=== PATIENT | female | born 1935 | race Caucasian/White ===

== ENCOUNTER 2016-08-04 16:27 | Inpatient (IN) | payer MEDICARE, BC ==
[2016-08-04] MEDS ORDERED: ALBUTEROL1.25 MG/3 INH (19:03)
[2016-08-04] MEDS ORDERED: TOPROL XL25 M1 PO (19:03)
[2016-08-04] MEDS ORDERED: TRIAMCINOLONE A15 G2 TP (19:03)
[2016-08-04] MEDS ORDERED: ADVAIR 25028 BLISTE1 PO (19:04)
[2016-08-04] MEDS ORDERED: ZOLOFT25 M1 PO (19:04)
[2016-08-04] MEDS ORDERED: CARDIZEM CD240 M1 PO (19:04)
[2016-08-04] MEDS ORDERED: ELIQUIS5 M1 PO (19:05)
[2016-08-04] MEDS ORDERED: LASIX20 M1 PO (19:05)
[2016-08-04 22:03] LABS: HGB-HEMOGLOBIN 6.6 gm/dl (12.0-15.5); MCH (MEAN CORPUSCULAR HGB) 27.7 pg (28.0-32.0); MCV (MEAN CELL VOLUME) 90.3 fl (82.0-96.0); MEAN PLATELET VOLUME 11.8 cmc (9.4-12.4); NEUTROPHIL-AUTOMATED 6.4 tho/cmm (1.6-8.0); PLATELET COUNT 226 tho/cmm (150-450); RED BLOOD COUNT 2.38 mil/cmm (4.00-5.20); RED CELL DISTRIBUTION WIDTH 15.2 % (12.4-16.4); WHITE BLOOD COUNT 10.1 tho/cmm (4.0-10.0)
[2016-08-04 22:05] LABS: INR 1.5 INR (0.9-1.1); PROTHROMBIN TIME 17.4 SECONDS (9.0-13.6)
[2016-08-04 22:15] LABS: FERRITIN 15 ng/ml (8-250)
[2016-08-04 22:18] LABS: IRON 35 ug/dl (37-170); IRON BINDING CAPACITY 331 ug/dl (250-450)
[2016-08-04 22:32] LABS: PROCALCITONIN <0.05 ng/ml (0.05-0.09)
[2016-08-04 22:35] LABS: C-REACTIVE PROTEIN <0.3 mg/dl (0-0.9)
[2016-08-04 22:54] LABS: BASO % 1.7 % (0-2); BASO ABSOLUTE COUNT 0.2 tho/cmm (0.0-0.2); EOS % 2.8 % (0-7); EOSINOPHIL ABSOLUTE COUNT 0.3 tho/cmm (0.0-0.7); HCT-HEMATOCRIT 21.5 % (34.0-49.0); IMMATURE GRANULOCYTES ABSOLUTE 0.93 tho/cmm (0-0.03); IMMATURE GRANULOCYTES PERCENT 9.2 % (0-0.3); LYMPH % 19.5 % (20-45); MCHC MEAN CORPUSCULAR HGB CONC 30.7 % (32.0-36.0); MONO % 4.2 % (0-12); MONOCYTE ABSOLUTE COUNT 0.4 tho/cmm (0.0-1.2); NEUTROPHIL ABSOLUTE COUNT 6.4 tho/cmm (1.6-8.0); NEUTROPHILS % 62.6 % (40-80)
[2016-08-04 23:29] LABS: ALB/GLOB RATIO 0.7 (0.8-2.0); ALBUMIN 2.8 g/dl (3.5-5.0); ALKALINE PHOSPHATASE 34 U/L (33-138); ALT/SGPT 16 U/L (12-78); ANION GAP 11 mmol/L (0-20); AST/SGOT 15 U/L (10-40); BILIRUBIN,TOTAL 0.3 mg/dl (0-1.5); BLOOD UREA NITROGEN 27 mg/dl (6-24); CALCIUM 7.9 mg/dl (8.5-10.5); CARBON DIOXIDE-VENOUS 23 mmol/L (22-32); CHLORIDE 112 mmol/l (96-110); CREATININE 0.94 mg/dl (0.50-1.10); GLUCOSE 114 mg/dL (70-110); SODIUM 142 mmol/L (135-145); eGFR VALUE FOR BLACK 66 mL/Min
[2016-08-05 04:54] LABS: BASO % 1.8 % (0-2); BASO ABSOLUTE COUNT 0.1 tho/cmm (0.0-0.2); EOS % 2.8 % (0-7); EOSINOPHIL ABSOLUTE COUNT 0.2 tho/cmm (0.0-0.7); HCT-HEMATOCRIT 23.2 % (34.0-49.0); HGB-HEMOGLOBIN 7.2 gm/dl (12.0-15.5); IMMATURE GRANULOCYTES ABSOLUTE 0.82 tho/cmm (0-0.03); IMMATURE GRANULOCYTES PERCENT 11.6 % (0-0.3); LYMPH % 20.2 % (20-45); LYMPH ABSOLUTE COUNT 1.4 tho/cmm (0.8-4.5); MCH (MEAN CORPUSCULAR HGB) 28.3 pg (28.0-32.0); MCV (MEAN CELL VOLUME) 91.3 fl (82.0-96.0); MEAN PLATELET VOLUME 11.7 cmc (9.4-12.4); MONO % 5.7 % (0-12); MONOCYTE ABSOLUTE COUNT 0.4 tho/cmm (0.0-1.2); NEUTROPHIL ABSOLUTE COUNT 4.1 tho/cmm (1.6-8.0); NEUTROPHIL-AUTOMATED 4.1 tho/cmm (1.6-8.0); NEUTROPHILS % 57.9 % (40-80); PLATELET COUNT 182 tho/cmm (150-450); RED BLOOD COUNT 2.54 mil/cmm (4.00-5.20); RED CELL DISTRIBUTION WIDTH 15.1 % (12.4-16.4); WHITE BLOOD COUNT 7.1 tho/cmm (4.0-10.0)
[2016-08-05 05:15] LABS: ANION GAP 12 mmol/L (0-20); BLOOD UREA NITROGEN 24 mg/dl (6-24); CALCIUM 7.3 mg/dl (8.5-10.5); CARBON DIOXIDE-VENOUS 22 mmol/L (22-32); CHLORIDE 113 mmol/l (96-110); GLUCOSE 102 mg/dL (70-110); POTASSIUM 3.9 mmol/L (3.7-5.1); SODIUM 143 mmol/L (135-145); eGFR VALUE FOR BLACK 70 mL/Min
[2016-08-05 13:38] LABS: HGB-HEMOGLOBIN 7.3 gm/dl (12.0-15.5); MCV (MEAN CELL VOLUME) 91.8 fl (82.0-96.0); RED CELL DISTRIBUTION WIDTH 15.2 % (12.4-16.4)
[2016-08-05 13:53] LABS: HCT-HEMATOCRIT 23.4 % (34.0-49.0)
[2016-08-05 19:17] LABS: HCT-HEMATOCRIT 24.2 % (34.0-49.0); HGB-HEMOGLOBIN 7.5 gm/dl (12.0-15.5); MCV (MEAN CELL VOLUME) 91.7 fl (82.0-96.0); RED CELL DISTRIBUTION WIDTH 15.3 % (12.4-16.4)
[2016-08-06 01:22] LABS: HGB-HEMOGLOBIN 6.8 gm/dl (12.0-15.5); MCV (MEAN CELL VOLUME) 92.9 fl (82.0-96.0); RED CELL DISTRIBUTION WIDTH 15.6 % (12.4-16.4)
[2016-08-06 01:24] LABS: HCT-HEMATOCRIT 22.1 % (34.0-49.0)
[2016-08-06 13:52] LABS: ABG CO2 ARTERIAL 22 mmol/L (21-27); ARTERIAL BLD GAS O2 SATURATION 94 % (95-98); ARTERIAL BLOOD GAS PCO2 38 mmHg (32-45); ARTERIAL PO2 67 mmHg (70-100); BICARBONATE 21 mmol/L (21-28); BLOOD GAS BASE EXCESS -3 mM/L (-/+3); PH 7.36 Units (7.35-7.45)
[2016-08-06 14:09] LABS: HCT-HEMATOCRIT 27.1 % (34.0-49.0); HGB-HEMOGLOBIN 8.5 gm/dl (12.0-15.5); MCH (MEAN CORPUSCULAR HGB) 28.7 pg (28.0-32.0); MCHC MEAN CORPUSCULAR HGB CONC 31.4 % (32.0-36.0); MCV (MEAN CELL VOLUME) 91.6 fl (82.0-96.0); MEAN PLATELET VOLUME 11.3 cmc (9.4-12.4); PLATELET COUNT 219 tho/cmm (150-450); RED BLOOD COUNT 2.96 mil/cmm (4.00-5.20); RED CELL DISTRIBUTION WIDTH 15.5 % (12.4-16.4)
[2016-08-06 14:16] LABS: WHITE BLOOD COUNT 18.2 tho/cmm (4.0-10.0)
[2016-08-06 14:20] LABS: ANION GAP 13 mmol/L (0-20); BLOOD UREA NITROGEN 16 mg/dl (6-24); CALCIUM 7.5 mg/dl (8.5-10.5); CARBON DIOXIDE-VENOUS 24 mmol/L (22-32); CHLORIDE 117 mmol/l (96-110); CREATININE 1.05 mg/dl (0.50-1.10); GLUCOSE 146 mg/dL (70-110); POTASSIUM 3.4 mmol/L (3.7-5.1); eGFR VALUE FOR BLACK 58 mL/Min
[2016-08-06 14:27] LABS: SODIUM 151 mmol/L (135-145)
[2016-08-06 15:46] LABS: BAND % 7 % (0-20); BAND ABSOLUTE COUNT 1.3 tho/cmm (0-2.0); EOSINOPHIL % 1 % (0-7)
[2016-08-06 19:16] LABS: HCT-HEMATOCRIT 27.2 % (34.0-49.0); HGB-HEMOGLOBIN 8.5 gm/dl (12.0-15.5); MCV (MEAN CELL VOLUME) 91.3 fl (82.0-96.0); RED CELL DISTRIBUTION WIDTH 15.5 % (12.4-16.4)
[2016-08-07 05:37] LABS: HCT-HEMATOCRIT 26.1 % (34.0-49.0); HGB-HEMOGLOBIN 8.1 gm/dl (12.0-15.5); MCH (MEAN CORPUSCULAR HGB) 28.5 pg (28.0-32.0); MCV (MEAN CELL VOLUME) 91.9 fl (82.0-96.0); MEAN PLATELET VOLUME 11.8 cmc (9.4-12.4); PLATELET COUNT 226 tho/cmm (150-450); RED BLOOD COUNT 2.84 mil/cmm (4.00-5.20); RED CELL DISTRIBUTION WIDTH 15.6 % (12.4-16.4)
[2016-08-07 05:48] LABS: ANION GAP 15 mmol/L (0-20); BLOOD UREA NITROGEN 20 mg/dl (6-24); CALCIUM 7.4 mg/dl (8.5-10.5); CARBON DIOXIDE-VENOUS 23 mmol/L (22-32); CHLORIDE 109 mmol/l (96-110); GLUCOSE 204 mg/dL (70-110); POTASSIUM 3.5 mmol/L (3.7-5.1); SODIUM 143 mmol/L (135-145); eGFR VALUE FOR BLACK 40 mL/Min
[2016-08-07 05:51] LABS: CREATININE 1.42 mg/dl (0.50-1.10)
[2016-08-07 05:59] LABS: WHITE BLOOD COUNT 47.2 tho/cmm (4.0-10.0)
[2016-08-07 06:53] LABS: BAND % 21 % (0-20); BAND ABSOLUTE COUNT 9.9 tho/cmm (0-2.0)
[2016-08-07 06:54] LABS: WBC MORPHOLOGY TOXIC GRANULATION
[2016-08-07 09:38] LABS: C-REACTIVE PROTEIN 14.4 mg/dl (0-0.9)
[2016-08-07 10:23] LABS: PROCALCITONIN 6.56 ng/ml (0.05-0.09)
[2016-08-07 13:14] LABS: HCT-HEMATOCRIT 25.1 % (34.0-49.0); HGB-HEMOGLOBIN 7.9 gm/dl (12.0-15.5); MCV (MEAN CELL VOLUME) 90.6 fl (82.0-96.0); RED CELL DISTRIBUTION WIDTH 15.7 % (12.4-16.4)
[2016-08-07 17:25] LABS: HGB-HEMOGLOBIN 7.3 gm/dl (12.0-15.5); MCV (MEAN CELL VOLUME) 89.8 fl (82.0-96.0); RED CELL DISTRIBUTION WIDTH 15.7 % (12.4-16.4)
[2016-08-07 17:26] LABS: HCT-HEMATOCRIT 22.9 % (34.0-49.0)
[2016-08-07 23:34] LABS: HGB-HEMOGLOBIN 7.6 gm/dl (12.0-15.5); MCV (MEAN CELL VOLUME) 89.9 fl (82.0-96.0); RED CELL DISTRIBUTION WIDTH 15.7 % (12.4-16.4)
[2016-08-08 05:04] LABS: HCT-HEMATOCRIT 24.3 % (34.0-49.0); HGB-HEMOGLOBIN 7.6 gm/dl (12.0-15.5); MCH (MEAN CORPUSCULAR HGB) 28.1 pg (28.0-32.0); MCHC MEAN CORPUSCULAR HGB CONC 31.3 % (32.0-36.0); MEAN PLATELET VOLUME 11.5 cmc (9.4-12.4); PLATELET COUNT 209 tho/cmm (150-450); RED CELL DISTRIBUTION WIDTH 15.5 % (12.4-16.4); WHITE BLOOD COUNT 27.1 tho/cmm (4.0-10.0)
[2016-08-08 05:21] LABS: CALCIUM 7.4 mg/dl (8.5-10.5); CARBON DIOXIDE-VENOUS 24 mmol/L (22-32); CHLORIDE 106 mmol/l (96-110); CREATININE 1.32 mg/dl (0.50-1.10); GLUCOSE 175 mg/dL (70-110); SODIUM 140 mmol/L (135-145); eGFR VALUE FOR BLACK 44 mL/Min
[2016-08-08 05:29] LABS: ANION GAP 13 mmol/L (0-20); BLOOD UREA NITROGEN 35 mg/dl (6-24)
[2016-08-08 06:18] LABS: BAND % 16 % (0-20); BAND ABSOLUTE COUNT 4.3 tho/cmm (0-2.0); EOSINOPHIL % 1 % (0-7)
[2016-08-08 06:19] LABS: WBC MORPHOLOGY TOXIC GRANULATION
[2016-08-09 04:21] LABS: HCT-HEMATOCRIT 24.8 % (34.0-49.0); HGB-HEMOGLOBIN 7.8 gm/dl (12.0-15.5); MCH (MEAN CORPUSCULAR HGB) 28.4 pg (28.0-32.0); MCHC MEAN CORPUSCULAR HGB CONC 31.5 % (32.0-36.0); MCV (MEAN CELL VOLUME) 90.2 fl (82.0-96.0); MEAN PLATELET VOLUME 11.6 cmc (9.4-12.4); PLATELET COUNT 229 tho/cmm (150-450); RED BLOOD COUNT 2.75 mil/cmm (4.00-5.20); RED CELL DISTRIBUTION WIDTH 15.5 % (12.4-16.4); WHITE BLOOD COUNT 19.9 tho/cmm (4.0-10.0)
[2016-08-09 04:33] LABS: ANION GAP 12 mmol/L (0-20); BLOOD UREA NITROGEN 27 mg/dl (6-24); CALCIUM 7.7 mg/dl (8.5-10.5); CARBON DIOXIDE-VENOUS 25 mmol/L (22-32); CHLORIDE 108 mmol/l (96-110); CREATININE 1.11 mg/dl (0.50-1.10); GLUCOSE 181 mg/dL (70-110); POTASSIUM 3.7 mmol/L (3.7-5.1); SODIUM 141 mmol/L (135-145); eGFR VALUE FOR BLACK 54 mL/Min
[2016-08-09 08:14] LABS: BAND % 13 % (0-20); BAND ABSOLUTE COUNT 2.6 tho/cmm (0-2.0)
[2016-08-10 05:01] LABS: HCT-HEMATOCRIT 26.8 % (34.0-49.0); HGB-HEMOGLOBIN 8.3 gm/dl (12.0-15.5); MCH (MEAN CORPUSCULAR HGB) 28.1 pg (28.0-32.0); MCV (MEAN CELL VOLUME) 90.8 fl (82.0-96.0); MEAN PLATELET VOLUME 11.9 cmc (9.4-12.4); PLATELET COUNT 286 tho/cmm (150-450); RED BLOOD COUNT 2.95 mil/cmm (4.00-5.20); RED CELL DISTRIBUTION WIDTH 15.3 % (12.4-16.4)
[2016-08-10 05:22] LABS: ANION GAP 12 mmol/L (0-20); BLOOD UREA NITROGEN 33 mg/dl (6-24); CARBON DIOXIDE-VENOUS 28 mmol/L (22-32); CHLORIDE 105 mmol/l (96-110); CREATININE 1.28 mg/dl (0.50-1.10); GLUCOSE 184 mg/dL (70-110); POTASSIUM 3.8 mmol/L (3.7-5.1); SODIUM 141 mmol/L (135-145); eGFR VALUE FOR BLACK 45 mL/Min
[2016-08-10 07:45] LABS: BAND % 11 % (0-20); BAND ABSOLUTE COUNT 1.9 tho/cmm (0-2.0)
[2016-08-11 05:20] LABS: HCT-HEMATOCRIT 28.3 % (34.0-49.0); HGB-HEMOGLOBIN 8.6 gm/dl (12.0-15.5); MCH (MEAN CORPUSCULAR HGB) 27.6 pg (28.0-32.0); MCHC MEAN CORPUSCULAR HGB CONC 30.4 % (32.0-36.0); MCV (MEAN CELL VOLUME) 90.7 fl (82.0-96.0); PLATELET COUNT 324 tho/cmm (150-450); RED BLOOD COUNT 3.12 mil/cmm (4.00-5.20); RED CELL DISTRIBUTION WIDTH 15.2 % (12.4-16.4); WHITE BLOOD COUNT 18.9 tho/cmm (4.0-10.0)
[2016-08-11 12:56] LABS: BAND % 1 % (0-20); BAND ABSOLUTE COUNT 0.2 tho/cmm (0-2.0); EOSINOPHIL % 2 % (0-7); WBC MORPHOLOGY VACUOLES
[2016-08-12 03:57] LABS: HCT-HEMATOCRIT 27.4 % (34.0-49.0); HGB-HEMOGLOBIN 8.4 gm/dl (12.0-15.5); MCH (MEAN CORPUSCULAR HGB) 27.5 pg (28.0-32.0); MCHC MEAN CORPUSCULAR HGB CONC 30.7 % (32.0-36.0); MCV (MEAN CELL VOLUME) 89.8 fl (82.0-96.0); MEAN PLATELET VOLUME 10.8 cmc (9.4-12.4); NEUTROPHIL-AUTOMATED 9.5 tho/cmm (1.6-8.0); PLATELET COUNT 296 tho/cmm (150-450); RED BLOOD COUNT 3.05 mil/cmm (4.00-5.20); RED CELL DISTRIBUTION WIDTH 15.3 % (12.4-16.4); WHITE BLOOD COUNT 15.1 tho/cmm (4.0-10.0)
[2016-08-12 04:21] LABS: ALBUMIN 2.7 g/dl (3.5-5.0); ANION GAP 13 mmol/L (0-20); BLOOD UREA NITROGEN 35 mg/dl (6-24); C-REACTIVE PROTEIN 1.4 mg/dl (0-0.9); CALCIUM 8.6 mg/dl (8.5-10.5); CARBON DIOXIDE-VENOUS 29 mmol/L (22-32); CHLORIDE 103 mmol/l (96-110); CREATININE 1.24 mg/dl (0.50-1.10); GLUCOSE 126 mg/dL (70-110); PHOSPHOROUS 5.4 mg/dl (2.5-4.9); POTASSIUM 3.6 mmol/L (3.7-5.1); SODIUM 141 mmol/L (135-145); eGFR VALUE FOR BLACK 47 mL/Min
[2016-08-12 05:41] LABS: PROCALCITONIN 0.21 ng/ml (0.05-0.09)
[2016-08-12 07:26] LABS: BAND % 4 % (0-20); BAND ABSOLUTE COUNT 0.6 tho/cmm (0-2.0); EOSINOPHIL % 1 % (0-7)
[2016-08-12 07:28] LABS: WBC MORPHOLOGY VACUOLES
[2016-08-13 04:46] LABS: HCT-HEMATOCRIT 28.3 % (34.0-49.0); HGB-HEMOGLOBIN 8.8 gm/dl (12.0-15.5); MCH (MEAN CORPUSCULAR HGB) 27.8 pg (28.0-32.0); MCHC MEAN CORPUSCULAR HGB CONC 31.1 % (32.0-36.0); MCV (MEAN CELL VOLUME) 89.6 fl (82.0-96.0); PLATELET COUNT 313 tho/cmm (150-450); RED BLOOD COUNT 3.16 mil/cmm (4.00-5.20); RED CELL DISTRIBUTION WIDTH 15.3 % (12.4-16.4); WHITE BLOOD COUNT 12.8 tho/cmm (4.0-10.0)
[2016-08-13 04:58] LABS: ANION GAP 12 mmol/L (0-20); BLOOD UREA NITROGEN 44 mg/dl (6-24); CALCIUM 8.8 mg/dl (8.5-10.5); CARBON DIOXIDE-VENOUS 33 mmol/L (22-32); CHLORIDE 99 mmol/l (96-110); CREATININE 1.42 mg/dl (0.50-1.10); GLUCOSE 102 mg/dL (70-110); POTASSIUM 3.6 mmol/L (3.7-5.1); SODIUM 140 mmol/L (135-145); eGFR VALUE FOR BLACK 40 mL/Min
[2016-08-13 08:45] LABS: BAND % 2 % (0-20); BAND ABSOLUTE COUNT 0.3 tho/cmm (0-2.0)
[2016-08-13] MEDS ORDERED: AMIODARONE HCL200 M1 PO (11:19)
[2016-08-13] MEDS ORDERED: PROTONIX40 M2 PO (11:21)
== END 2016-08-13 16:35 | disposition home health service (06) | DRG 299 ==
LOC: PCUB 16:27 → CCU 08-06 16:45 → PCUA 08-10 13:29
PROVIDERS: Family Medicine; Internal Medicine; Internal Medicine Critical Care Medicine; Nurse Practitioner Family; Physician Assistant; Registered Nurse; Specialist; ADMIT Internal Medicine
PROC: 0D598ZZ Destruction of Duodenum, Via Natural or Artificial Opening Endoscopic (ICD-10-PCS; principal; 2016-08-05)
PROC: 30233N1 Transfusion of Nonautologous Red Blood Cells into Peripheral Vein, Percutaneous Approach (ICD-10-PCS; 2016-08-05)
PROC: 5A09457 Assistance with Respiratory Ventilation, 24-96 Consecutive Hours, Continuous Positive Airway Pressure (ICD-10-PCS; 2016-08-05)
PROC: 0D5H8ZZ Destruction of Cecum, Via Natural or Artificial Opening Endoscopic (ICD-10-PCS; 2016-08-06)
PROC: 0W3P8ZZ Control Bleeding in Gastrointestinal Tract, Via Natural or Artificial Opening Endoscopic (ICD-10-PCS; 2016-08-06)
PROC: 02HV33Z Insertion of Infusion Device into Superior Vena Cava, Percutaneous Approach (ICD-10-PCS; 2016-08-07)
DX: Q27.33 Arteriovenous malformation of digestive system vessel (principal); J95.821 Acute postprocedural respiratory failure; J69.0 Pneumonitis due to inhalation of food and vomit; I50.31 Acute diastolic (congestive) heart failure; F32.0 Major depressive disorder, single episode, mild; K92.1 Melena; D62 Acute posthemorrhagic anemia; N17.9 Acute kidney failure, unspecified; K64.8 Other hemorrhoids; D51.0 Vitamin B12 deficiency anemia due to intrinsic factor deficiency; D12.2 Benign neoplasm of ascending colon; D64.9 Anemia, unspecified; I48.91 Unspecified atrial fibrillation; J44.9 Chronic obstructive pulmonary disease, unspecified; I05.0 Rheumatic mitral stenosis; F32.9 Major depressive disorder, single episode, unspecified; K57.30 Diverticulosis of large intestine without perforation or abscess without bleeding; D12.5 Benign neoplasm of sigmoid colon; R91.8 Other nonspecific abnormal finding of lung field; M81.0 Age-related osteoporosis without current pathological fracture; Y84.8 Other medical procedures as the cause of abnormal reaction of the patient, or of later complication, without mention of misadventure at the time of the procedure; Z79.01 Long term (current) use of anticoagulants; Z87.891 Personal history of nicotine dependence; Z90.49 Acquired absence of other specified parts of digestive tract; Z98.51 Tubal ligation status
CPT/HCPCS: C1751; C1758; C9113; G8978-GP-CI; G8979-GP-CI; G8980-GP-CI; J0282; J1940; J2405; J2543; J2920; J2930; J3370; J3480; J7030; J7050; J7512; P9016

== ENCOUNTER 2016-08-18 18:29 | Observation (INO) | payer MEDICARE, BC ==
[2016-08-18 17:53] LABS: URINE BILIRUBIN NEGATIVE (NEG); URINE BLOOD NEGATIVE (NEG); URINE GLUCOSE (UA) NEGATIVE (NEG); URINE KETONE NEGATIVE (NEG); URINE LEUKOCYTE ESTERASE NEGATIVE (NEG); URINE NITRITE NEGATIVE (NEG); URINE PROTEIN NEGATIVE (NEG); URINE SPECIFIC GRAVITY 1.015 (1.003-1.030)
[2016-08-18 17:57] LABS: URINE COLOR YELLOW
[2016-08-18 17:58] LABS: URINE APPEARANCE SL CLOUDY
[2016-08-18 18:00] LABS: BASO % 0.4 % (0-2); EOS % 1.9 % (0-7); EOSINOPHIL ABSOLUTE COUNT 0.2 tho/cmm (0.0-0.7); HCT-HEMATOCRIT 26.3 % (34.0-49.0); IMMATURE GRANULOCYTES ABSOLUTE 0.29 tho/cmm (0-0.03); IMMATURE GRANULOCYTES PERCENT 3.7 % (0-0.3); LYMPH % 14.8 % (20-45); LYMPH ABSOLUTE COUNT 1.2 tho/cmm (0.8-4.5); MCH (MEAN CORPUSCULAR HGB) 27.5 pg (28.0-32.0); MCHC MEAN CORPUSCULAR HGB CONC 30.4 % (32.0-36.0); MCV (MEAN CELL VOLUME) 90.4 fl (82.0-96.0); MONOCYTE ABSOLUTE COUNT 0.3 tho/cmm (0.0-1.2); NEUTROPHILS % 75.2 % (40-80); PLATELET COUNT 194 tho/cmm (150-450); RED BLOOD COUNT 2.91 mil/cmm (4.00-5.20); RED CELL DISTRIBUTION WIDTH 15.8 % (12.4-16.4); WHITE BLOOD COUNT 7.9 tho/cmm (4.0-10.0)
[2016-08-18 18:16] LABS: ALB/GLOB RATIO 0.7 (0.8-2.0); ALKALINE PHOSPHATASE 37 U/L (33-138); ALT/SGPT 26 U/L (12-78); ANION GAP 12 mmol/L (0-20); AST/SGOT 15 U/L (10-40); BILIRUBIN,TOTAL 0.3 mg/dl (0-1.5); BLOOD UREA NITROGEN 29 mg/dl (6-24); CALCIUM 8.3 mg/dl (8.5-10.5); CARBON DIOXIDE-VENOUS 25 mmol/L (22-32); CHLORIDE 110 mmol/l (96-110); CREATININE 1.41 mg/dl (0.50-1.10); GLUCOSE 110 mg/dL (70-110); LIPASE 259 U/L (73-393); POTASSIUM 3.7 mmol/L (3.7-5.1); SODIUM 143 mmol/L (135-145); eGFR VALUE FOR BLACK 40 mL/Min
[~2016-08-18 18:29] MED LIST: ADVAIR 25028 BLISTE1 PO; ALBUTEROL1.25 MG/3 INH; AMIODARONE HCL200 M1 PO; CARDIZEM CD240 M1 PO; ELIQUIS5 M1 PO; LASIX20 M1 PO; PROTONIX40 M2 PO; TOPROL XL25 M1 PO; TRIAMCINOLONE A15 G2 TP; ZOLOFT25 M1 PO
[2016-08-19 04:26] LABS: BASO % 0.4 % (0-2); EOS % 3.1 % (0-7); EOSINOPHIL ABSOLUTE COUNT 0.1 tho/cmm (0.0-0.7); HGB-HEMOGLOBIN 7.2 gm/dl (12.0-15.5); IMMATURE GRANULOCYTES PERCENT 4.4 % (0-0.3); LYMPH % 26.2 % (20-45); LYMPH ABSOLUTE COUNT 1.2 tho/cmm (0.8-4.5); MCH (MEAN CORPUSCULAR HGB) 27.3 pg (28.0-32.0); MCHC MEAN CORPUSCULAR HGB CONC 30.1 % (32.0-36.0); MCV (MEAN CELL VOLUME) 90.5 fl (82.0-96.0); MEAN PLATELET VOLUME 11.1 cmc (9.4-12.4); MONO % 5.9 % (0-12); MONOCYTE ABSOLUTE COUNT 0.3 tho/cmm (0.0-1.2); NEUTROPHIL ABSOLUTE COUNT 2.7 tho/cmm (1.6-8.0); NEUTROPHIL-AUTOMATED 2.7 tho/cmm (1.6-8.0); PLATELET COUNT 175 tho/cmm (150-450); RED BLOOD COUNT 2.64 mil/cmm (4.00-5.20); RED CELL DISTRIBUTION WIDTH 15.9 % (12.4-16.4); WHITE BLOOD COUNT 4.5 tho/cmm (4.0-10.0)
[2016-08-19 04:30] LABS: ANION GAP 10 mmol/L (0-20); BLOOD UREA NITROGEN 22 mg/dl (6-24); CALCIUM 7.5 mg/dl (8.5-10.5); CARBON DIOXIDE-VENOUS 25 mmol/L (22-32); CHLORIDE 113 mmol/l (96-110); CREATININE 1.11 mg/dl (0.50-1.10); GLUCOSE 100 mg/dL (70-110); POTASSIUM 3.7 mmol/L (3.7-5.1); SODIUM 144 mmol/L (135-145); eGFR VALUE FOR BLACK 54 mL/Min
[2016-08-19 04:40] LABS: HCT-HEMATOCRIT 23.9 % (34.0-49.0)
[2016-08-19] MEDS ORDERED: MAPAP500 M2 PO (10:40)
[2016-08-19] MEDS ORDERED: SPIRIVA18 MC1 INH (10:40)
[2016-08-19] MEDS ORDERED: CYANOCOBAL1000 MCG/3 IM (10:40)
[2016-08-19] MEDS ORDERED: LORATADINE10 M2 PO (10:41)
--- NOTE | 2016-08-19 20:35 | NUR ---
VIRTUAL CARE NOTE PT. IN BED AND NOTED HAD HEATING PAD ON. SHE EXPLAINS TO THIS NURSE SHE HAS A SPOT IN HER BACK THAT CAUSES HER PAIN AND THE HEATING PAD HELPS. STATES IS HAVING SOME PAIN, BUT HAS TOLD HER FLOOR NURSE ABOUT AND THE RN WILL BRING HER MEDS SHORTLY. EDUCATION PROVIDED TO THE PT. REGARDING THE DOCTOR IS WANTING TO OBTAIN A STOOL SAMPLE TO MAKE SURE SHE DOESN'T HAVE A C-DIFF INFECTION. ALSO EDUCATION ON PRECAUTIONS OF STAFF AND GUESTS PROVIDED. DENIES FURTHER QUESTIONS AT THIS TIME. EDUCATION PROVIDED THAT IF PT. FELT DIZZY OR SOB WHILE SITTING UP TO CALL FOR ASSISTANCE FOR AMBULATION. DENIES FURTHER NEEDS AND STATES VERBAL AGREEMENT.
[2016-08-20 05:51] LABS: BASO % 0.7 % (0-2); EOS % 2.8 % (0-7); EOSINOPHIL ABSOLUTE COUNT 0.1 tho/cmm (0.0-0.7); HGB-HEMOGLOBIN 8.6 gm/dl (12.0-15.5); IMMATURE GRANULOCYTES ABSOLUTE 0.13 tho/cmm (0-0.03); LYMPH % 25.3 % (20-45); LYMPH ABSOLUTE COUNT 1.1 tho/cmm (0.8-4.5); MCH (MEAN CORPUSCULAR HGB) 27.1 pg (28.0-32.0); MCHC MEAN CORPUSCULAR HGB CONC 30.7 % (32.0-36.0); MCV (MEAN CELL VOLUME) 88.3 fl (82.0-96.0); MEAN PLATELET VOLUME 10.4 cmc (9.4-12.4); MONO % 6.5 % (0-12); MONOCYTE ABSOLUTE COUNT 0.3 tho/cmm (0.0-1.2); NEUTROPHIL ABSOLUTE COUNT 2.7 tho/cmm (1.6-8.0); NEUTROPHIL-AUTOMATED 2.7 tho/cmm (1.6-8.0); NEUTROPHILS % 61.7 % (40-80); PLATELET COUNT 174 tho/cmm (150-450); RED BLOOD COUNT 3.17 mil/cmm (4.00-5.20); RED CELL DISTRIBUTION WIDTH 17.3 % (12.4-16.4); WHITE BLOOD COUNT 4.3 tho/cmm (4.0-10.0)
[2016-08-20 06:18] LABS: ANION GAP 10 mmol/L (0-20); BLOOD UREA NITROGEN 11 mg/dl (6-24); CALCIUM 7.4 mg/dl (8.5-10.5); CARBON DIOXIDE-VENOUS 23 mmol/L (22-32); CHLORIDE 115 mmol/l (96-110); CREATININE 0.89 mg/dl (0.50-1.10); GLUCOSE 91 mg/dL (70-110); MAGNESIUM 2.2 mg/dl (1.3-2.6); POTASSIUM 3.9 mmol/L (3.7-5.1); SODIUM 144 mmol/L (135-145); eGFR VALUE FOR BLACK 70 mL/Min
[2016-08-20] MEDS ORDERED: DICYCLOMINE HCL20 M1 PO (12:11)
[2016-08-20] MEDS ORDERED: FEOSOL325 M1 PO (12:11)
[2016-08-20] MEDS ORDERED: MIRALAX17 G2 PO (12:12)
== END 2016-08-20 16:55 ==
LOC: EDMED 18:29 → EMR2 21:30 → 5WD 22:42
PROVIDERS: Emergency Medicine; Internal Medicine; ADMIT Hospitalist
DX: D50.0 Iron deficiency anemia secondary to blood loss (chronic) (principal); D51.0 Vitamin B12 deficiency anemia due to intrinsic factor deficiency; K92.1 Melena; J69.0 Pneumonitis due to inhalation of food and vomit; J45.909 Unspecified asthma, uncomplicated; F32.9 Major depressive disorder, single episode, unspecified; Z79.899 Other long term (current) drug therapy; Z79.52 Long term (current) use of systemic steroids; Z86.79 Personal history of other diseases of the circulatory system; Z90.49 Acquired absence of other specified parts of digestive tract; Z90.710 Acquired absence of both cervix and uterus; Z98.51 Tubal ligation status; Z88.2 Allergy status to sulfonamides
CPT/HCPCS: G0378; G8978-GP-CJ; G8979-GP-CI; G8980-GP-CJ; G8987-GO-CJ; G8988-GO-CI; G8989-GO-CJ; J2405; J3420; J7030; P9016

== ENCOUNTER 2016-08-22 06:36 | Inpatient (IN) | payer MEDICARE, BC ==
[~2016-08-22 06:36] MED LIST changes: +CYANOCOBAL1000 MCG/3 IM; +DICYCLOMINE HCL20 M1 PO; +FEOSOL325 M1 PO; +LORATADINE10 M2 PO; +MAPAP500 M2 PO; +MIRALAX17 G2 PO; +SPIRIVA18 MC1 INH
[2016-08-22 07:30] LABS: BASO % 0.9 % (0-2); BASO ABSOLUTE COUNT 0.1 tho/cmm (0.0-0.2); EOS % 1.5 % (0-7); EOSINOPHIL ABSOLUTE COUNT 0.1 tho/cmm (0.0-0.7); HCT-HEMATOCRIT 28.7 % (34.0-49.0); HGB-HEMOGLOBIN 8.8 gm/dl (12.0-15.5); IMMATURE GRANULOCYTES ABSOLUTE 0.08 tho/cmm (0-0.03); IMMATURE GRANULOCYTES PERCENT 1.5 % (0-0.3); LYMPH % 22.9 % (20-45); LYMPH ABSOLUTE COUNT 1.2 tho/cmm (0.8-4.5); MCH (MEAN CORPUSCULAR HGB) 27.3 pg (28.0-32.0); MCHC MEAN CORPUSCULAR HGB CONC 30.7 % (32.0-36.0); MCV (MEAN CELL VOLUME) 89.1 fl (82.0-96.0); MEAN PLATELET VOLUME 10.6 cmc (9.4-12.4); MONO % 5.3 % (0-12); MONOCYTE ABSOLUTE COUNT 0.3 tho/cmm (0.0-1.2); NEUTROPHIL ABSOLUTE COUNT 3.6 tho/cmm (1.6-8.0); NEUTROPHIL-AUTOMATED 3.6 tho/cmm (1.6-8.0); NEUTROPHILS % 67.9 % (40-80); PLATELET COUNT 214 tho/cmm (150-450); RED BLOOD COUNT 3.22 mil/cmm (4.00-5.20); RED CELL DISTRIBUTION WIDTH 17.1 % (12.4-16.4); WHITE BLOOD COUNT 5.3 tho/cmm (4.0-10.0)
[2016-08-22 07:32] LABS: PROTHROMBIN TIME 11.6 SECONDS (9.0-13.6)
[2016-08-22 07:36] LABS: URINE APPEARANCE CLEAR; URINE BILIRUBIN NEGATIVE (NEG); URINE BLOOD NEGATIVE (NEG); URINE COLOR YELLOW; URINE GLUCOSE (UA) NEGATIVE (NEG); URINE KETONE NEGATIVE (NEG); URINE LEUKOCYTE ESTERASE NEGATIVE (NEG); URINE NITRITE NEGATIVE (NEG); URINE PROTEIN NEGATIVE (NEG); URINE SPECIFIC GRAVITY 1.015 (1.003-1.030)
[2016-08-22 07:45] LABS: ALB/GLOB RATIO 0.8 (0.8-2.0); ALBUMIN 2.9 g/dl (3.5-5.0); ALKALINE PHOSPHATASE 37 U/L (33-138); ALT/SGPT 47 U/L (12-78); ANION GAP 13 mmol/L (0-20); AST/SGOT 29 U/L (10-40); BILIRUBIN,TOTAL 0.4 mg/dl (0-1.5); BLOOD UREA NITROGEN 14 mg/dl (6-24); CALCIUM 7.8 mg/dl (8.5-10.5); CARBON DIOXIDE-VENOUS 24 mmol/L (22-32); CHLORIDE 111 mmol/l (96-110); CREATININE 1.01 mg/dl (0.50-1.10); GLUCOSE 125 mg/dL (70-110); POTASSIUM 3.8 mmol/L (3.7-5.1); SODIUM 144 mmol/L (135-145); eGFR VALUE FOR BLACK 60 mL/Min
[2016-08-23 06:57] LABS: ANION GAP 10 mmol/L (0-20); BLOOD UREA NITROGEN 15 mg/dl (6-24); CARBON DIOXIDE-VENOUS 27 mmol/L (22-32); CHLORIDE 108 mmol/l (96-110); CREATININE 1.12 mg/dl (0.50-1.10); GLUCOSE 144 mg/dL (70-110); POTASSIUM 3.4 mmol/L (3.7-5.1); SODIUM 142 mmol/L (135-145); eGFR VALUE FOR BLACK 53 mL/Min
[2016-08-24 05:13] LABS: BASO % 2.3 % (0-2); BASO ABSOLUTE COUNT 0.1 tho/cmm (0.0-0.2); EOS % 2.8 % (0-7); EOSINOPHIL ABSOLUTE COUNT 0.1 tho/cmm (0.0-0.7); HCT-HEMATOCRIT 26.7 % (34.0-49.0); HGB-HEMOGLOBIN 8.1 gm/dl (12.0-15.5); IMMATURE GRANULOCYTES ABSOLUTE 0.04 tho/cmm (0-0.03); LYMPH % 31.7 % (20-45); LYMPH ABSOLUTE COUNT 1.2 tho/cmm (0.8-4.5); MCH (MEAN CORPUSCULAR HGB) 27.1 pg (28.0-32.0); MCHC MEAN CORPUSCULAR HGB CONC 30.3 % (32.0-36.0); MCV (MEAN CELL VOLUME) 89.3 fl (82.0-96.0); MEAN PLATELET VOLUME 10.3 cmc (9.4-12.4); MONO % 8.5 % (0-12); MONOCYTE ABSOLUTE COUNT 0.3 tho/cmm (0.0-1.2); NEUTROPHIL ABSOLUTE COUNT 2.1 tho/cmm (1.6-8.0); NEUTROPHIL-AUTOMATED 2.1 tho/cmm (1.6-8.0); NEUTROPHILS % 53.7 % (40-80); PLATELET COUNT 211 tho/cmm (150-450); RED BLOOD COUNT 2.99 mil/cmm (4.00-5.20); RED CELL DISTRIBUTION WIDTH 17.3 % (12.4-16.4); WHITE BLOOD COUNT 3.9 tho/cmm (4.0-10.0)
[2016-08-24 05:30] LABS: ANION GAP 11 mmol/L (0-20); BLOOD UREA NITROGEN 18 mg/dl (6-24); CALCIUM 8.1 mg/dl (8.5-10.5); CARBON DIOXIDE-VENOUS 28 mmol/L (22-32); CHLORIDE 106 mmol/l (96-110); CREATININE 1.13 mg/dl (0.50-1.10); GLUCOSE 132 mg/dL (70-110); POTASSIUM 3.4 mmol/L (3.7-5.1); SODIUM 142 mmol/L (135-145); eGFR VALUE FOR BLACK 53 mL/Min
[2016-08-24 05:50] LABS: TSH-THYROID STIMULATING HORM. 4.53 uIU/ml (0.40-3.80)
[2016-08-25 05:43] LABS: BASO % 1.2 % (0-2); BASO ABSOLUTE COUNT 0.1 tho/cmm (0.0-0.2); EOS % 3.7 % (0-7); EOSINOPHIL ABSOLUTE COUNT 0.2 tho/cmm (0.0-0.7); HCT-HEMATOCRIT 27.5 % (34.0-49.0); HGB-HEMOGLOBIN 8.4 gm/dl (12.0-15.5); IMMATURE GRANULOCYTES ABSOLUTE 0.07 tho/cmm (0-0.03); IMMATURE GRANULOCYTES PERCENT 1.4 % (0-0.3); LYMPH % 31.3 % (20-45); LYMPH ABSOLUTE COUNT 1.5 tho/cmm (0.8-4.5); MCHC MEAN CORPUSCULAR HGB CONC 30.5 % (32.0-36.0); MCV (MEAN CELL VOLUME) 88.4 fl (82.0-96.0); MEAN PLATELET VOLUME 10.8 cmc (9.4-12.4); MONO % 6.2 % (0-12); MONOCYTE ABSOLUTE COUNT 0.3 tho/cmm (0.0-1.2); NEUTROPHIL ABSOLUTE COUNT 2.7 tho/cmm (1.6-8.0); NEUTROPHIL-AUTOMATED 2.7 tho/cmm (1.6-8.0); NEUTROPHILS % 56.2 % (40-80); PLATELET COUNT 222 tho/cmm (150-450); RED BLOOD COUNT 3.11 mil/cmm (4.00-5.20); RED CELL DISTRIBUTION WIDTH 17.3 % (12.4-16.4); WHITE BLOOD COUNT 4.8 tho/cmm (4.0-10.0)
[2016-08-25 05:55] LABS: ANION GAP 11 mmol/L (0-20); BLOOD UREA NITROGEN 22 mg/dl (6-24); CALCIUM 8.4 mg/dl (8.5-10.5); CARBON DIOXIDE-VENOUS 29 mmol/L (22-32); CHLORIDE 104 mmol/l (96-110); CREATININE 1.05 mg/dl (0.50-1.10); GLUCOSE 115 mg/dL (70-110); POTASSIUM 3.6 mmol/L (3.7-5.1); SODIUM 140 mmol/L (135-145); eGFR VALUE FOR BLACK 58 mL/Min
[2016-08-26 05:30] LABS: ANION GAP 14 mmol/L (0-20); BLOOD UREA NITROGEN 25 mg/dl (6-24); CALCIUM 8.2 mg/dl (8.5-10.5); CARBON DIOXIDE-VENOUS 29 mmol/L (22-32); CHLORIDE 103 mmol/l (96-110); CREATININE 1.12 mg/dl (0.50-1.10); GLUCOSE 113 mg/dL (70-110); POTASSIUM 3.6 mmol/L (3.7-5.1); SODIUM 142 mmol/L (135-145); eGFR VALUE FOR BLACK 53 mL/Min
[2016-08-26] MEDS ORDERED: POTASSIUM CHLO10 ME1 PO (10:47)
[2016-08-27 06:02] LABS: ANION GAP 10 mmol/L (0-20); BLOOD UREA NITROGEN 25 mg/dl (6-24); CALCIUM 8.3 mg/dl (8.5-10.5); CARBON DIOXIDE-VENOUS 30 mmol/L (22-32); CHLORIDE 102 mmol/l (96-110); CREATININE 1.18 mg/dl (0.50-1.10); GLUCOSE 133 mg/dL (70-110); POTASSIUM 3.2 mmol/L (3.7-5.1); SODIUM 139 mmol/L (135-145); eGFR VALUE FOR BLACK 50 mL/Min
[2016-08-27] MEDS ORDERED: LASIX40 M1 PO (10:02)
[2016-08-27] MEDS ORDERED: ZOFRAN4 M2 PO (10:03)
[2016-08-27] MEDS ORDERED: K-TAB ER20 ME1 PO (10:03)
== END 2016-08-27 15:29 | disposition home health service (06) | DRG 291 ==
LOC: EDMED 06:36 → EMR2 13:12 → 5WE 15:33
PROVIDERS: Emergency Medicine; Family Medicine; ADMIT Internal Medicine
PROC: 5A09357 Assistance with Respiratory Ventilation, Less than 24 Consecutive Hours, Continuous Positive Airway Pressure (ICD-10-PCS; principal; 2016-08-22)
DX: I50.33 Acute on chronic diastolic (congestive) heart failure (principal); J96.01 Acute respiratory failure with hypoxia; Q27.33 Arteriovenous malformation of digestive system vessel; R19.7 Diarrhea, unspecified; D50.0 Iron deficiency anemia secondary to blood loss (chronic); I48.0 Paroxysmal atrial fibrillation; J44.9 Chronic obstructive pulmonary disease, unspecified; Z99.81 Dependence on supplemental oxygen; M81.0 Age-related osteoporosis without current pathological fracture; K64.8 Other hemorrhoids; I05.0 Rheumatic mitral stenosis; Z88.2 Allergy status to sulfonamides; I71.2 Thoracic aortic aneurysm, without rupture; Z66 Do not resuscitate; Z87.891 Personal history of nicotine dependence; F32.9 Major depressive disorder, single episode, unspecified; J84.10 Pulmonary fibrosis, unspecified; E03.9 Hypothyroidism, unspecified; E87.5 Hyperkalemia; K59.00 Constipation, unspecified; I27.2 Other secondary pulmonary hypertension
CPT/HCPCS: J1940; J7030; Q9967

== ENCOUNTER 2016-09-02 09:04 | Inpatient (IN) | payer MEDICARE, BC ==
[~2016-09-02 09:04] MED LIST changes: +K-TAB ER20 ME1 PO; +LASIX40 M1 PO; +POTASSIUM CHLO10 ME1 PO; +ZOFRAN4 M2 PO
[2016-09-02 10:03] LABS: HCT-HEMATOCRIT 25.2 % (34.0-49.0); HGB-HEMOGLOBIN 7.6 gm/dl (12.0-15.5); MCH (MEAN CORPUSCULAR HGB) 26.2 pg (28.0-32.0); MCHC MEAN CORPUSCULAR HGB CONC 30.2 % (32.0-36.0); MCV (MEAN CELL VOLUME) 86.9 fl (82.0-96.0); MEAN PLATELET VOLUME 10.6 cmc (9.4-12.4); NEUTROPHIL-AUTOMATED 4.4 tho/cmm (1.6-8.0); PLATELET COUNT 238 tho/cmm (150-450); RED CELL DISTRIBUTION WIDTH 16.6 % (12.4-16.4); WHITE BLOOD COUNT 6.6 tho/cmm (4.0-10.0)
[2016-09-02 10:35] LABS: ALB/GLOB RATIO 0.7 (0.8-2.0); ALBUMIN 2.8 g/dl (3.5-5.0); ALKALINE PHOSPHATASE 46 U/L (33-138); ALT/SGPT 32 U/L (12-78); ANION GAP 14 mmol/L (0-20); AST/SGOT 26 U/L (10-40); BILIRUBIN,TOTAL 0.3 mg/dl (0-1.5); BLOOD UREA NITROGEN 35 mg/dl (6-24); CARBON DIOXIDE-VENOUS 22 mmol/L (22-32); CHLORIDE 108 mmol/l (96-110); CREATININE 1.55 mg/dl (0.50-1.10); GLUCOSE 158 mg/dL (70-110); POTASSIUM 4.1 mmol/L (3.7-5.1); SODIUM 140 mmol/L (135-145); eGFR VALUE FOR BLACK 36 mL/Min
[2016-09-02 11:49] LABS: BAND % 11 % (0-20); BAND ABSOLUTE COUNT 0.7 tho/cmm (0-2.0); EOSINOPHIL % 2 % (0-7)
[2016-09-02 17:26] LABS: ANION GAP 12 mmol/L (0-20); BLOOD UREA NITROGEN 32 mg/dl (6-24); CALCIUM 8.2 mg/dl (8.5-10.5); CARBON DIOXIDE-VENOUS 27 mmol/L (22-32); CHLORIDE 104 mmol/l (96-110); CREATININE 1.41 mg/dl (0.50-1.10); GLUCOSE 109 mg/dL (70-110); POTASSIUM 3.8 mmol/L (3.7-5.1); SODIUM 139 mmol/L (135-145); eGFR VALUE FOR BLACK 40 mL/Min
[2016-09-02 20:04] LABS: HCT-HEMATOCRIT 27.4 % (34.0-49.0); HGB-HEMOGLOBIN 8.4 gm/dl (12.0-15.5); MCV (MEAN CELL VOLUME) 86.4 fl (82.0-96.0); RED CELL DISTRIBUTION WIDTH 16.2 % (12.4-16.4)
[2016-09-02 20:20] LABS: ANION GAP 12 mmol/L (0-20); BLOOD UREA NITROGEN 32 mg/dl (6-24); CALCIUM 7.9 mg/dl (8.5-10.5); CARBON DIOXIDE-VENOUS 26 mmol/L (22-32); CHLORIDE 105 mmol/l (96-110); GLUCOSE 150 mg/dL (70-110); SODIUM 139 mmol/L (135-145); eGFR VALUE FOR BLACK 37 mL/Min
[2016-09-03 06:05] LABS: ANION GAP 13 mmol/L (0-20); BLOOD UREA NITROGEN 32 mg/dl (6-24); CALCIUM 8.1 mg/dl (8.5-10.5); CARBON DIOXIDE-VENOUS 26 mmol/L (22-32); CHLORIDE 106 mmol/l (96-110); CHOLESTEROL 122 mg/dl (120-200); CREATININE 1.39 mg/dl (0.50-1.10); GLUCOSE 114 mg/dL (70-110); HDL CHOLESTEROL 34 mg/dl (40-60); LDL CHOLESTEROL 60 mg/dl (0-99); POTASSIUM 4.1 mmol/L (3.7-5.1); SODIUM 141 mmol/L (135-145); TRIGLYCERIDES 142 mg/dl (<149); VLDL 28 mg/dl (0-30); eGFR VALUE FOR BLACK 41 mL/Min
[2016-09-03 06:08] LABS: HCT-HEMATOCRIT 27.8 % (34.0-49.0); HGB-HEMOGLOBIN 8.4 gm/dl (12.0-15.5); MCH (MEAN CORPUSCULAR HGB) 26.1 pg (28.0-32.0); MCHC MEAN CORPUSCULAR HGB CONC 30.2 % (32.0-36.0); MCV (MEAN CELL VOLUME) 86.3 fl (82.0-96.0); NEUTROPHIL-AUTOMATED 2.9 tho/cmm (1.6-8.0); PLATELET COUNT 237 tho/cmm (150-450); RED BLOOD COUNT 3.22 mil/cmm (4.00-5.20); RED CELL DISTRIBUTION WIDTH 16.3 % (12.4-16.4); WHITE BLOOD COUNT 5.4 tho/cmm (4.0-10.0)
[2016-09-03 09:30] LABS: BAND % 21 % (0-20); BAND ABSOLUTE COUNT 1.1 tho/cmm (0-2.0); EOSINOPHIL % 3 % (0-7)
[2016-09-04 06:00] LABS: ANION GAP 11 mmol/L (0-20); BLOOD UREA NITROGEN 32 mg/dl (6-24); CALCIUM 8.2 mg/dl (8.5-10.5); CARBON DIOXIDE-VENOUS 26 mmol/L (22-32); CHLORIDE 104 mmol/l (96-110); CREATININE 1.28 mg/dl (0.50-1.10); GLUCOSE 119 mg/dL (70-110); POTASSIUM 4.1 mmol/L (3.7-5.1); SODIUM 137 mmol/L (135-145); eGFR VALUE FOR BLACK 45 mL/Min
[2016-09-04 10:34] LABS: BASO % 1.4 % (0-2); BASO ABSOLUTE COUNT 0.1 tho/cmm (0.0-0.2); EOS % 4.7 % (0-7); EOSINOPHIL ABSOLUTE COUNT 0.3 tho/cmm (0.0-0.7); HCT-HEMATOCRIT 26.9 % (34.0-49.0); HGB-HEMOGLOBIN 8.2 gm/dl (12.0-15.5); IMMATURE GRANULOCYTES PERCENT 4.5 % (0-0.3); LYMPH % 21.3 % (20-45); LYMPH ABSOLUTE COUNT 1.4 tho/cmm (0.8-4.5); MCH (MEAN CORPUSCULAR HGB) 26.5 pg (28.0-32.0); MCHC MEAN CORPUSCULAR HGB CONC 30.5 % (32.0-36.0); MCV (MEAN CELL VOLUME) 86.8 fl (82.0-96.0); MEAN PLATELET VOLUME 10.4 cmc (9.4-12.4); MONO % 7.4 % (0-12); MONOCYTE ABSOLUTE COUNT 0.5 tho/cmm (0.0-1.2); NEUTROPHILS % 60.7 % (40-80); PLATELET COUNT 255 tho/cmm (150-450); RED CELL DISTRIBUTION WIDTH 16.5 % (12.4-16.4); WHITE BLOOD COUNT 6.6 tho/cmm (4.0-10.0)
--- NOTE | 2016-09-04 18:57 | NUR ---
AGREE WITH STUDENT NURSES ASSESSMENTS. MADE EDITS NEEDED.
[2016-09-05 04:33] LABS: HCT-HEMATOCRIT 27.4 % (34.0-49.0); HGB-HEMOGLOBIN 8.2 gm/dl (12.0-15.5); MCHC MEAN CORPUSCULAR HGB CONC 29.9 % (32.0-36.0); MEAN PLATELET VOLUME 10.4 cmc (9.4-12.4); PLATELET COUNT 256 tho/cmm (150-450); RED BLOOD COUNT 3.15 mil/cmm (4.00-5.20); RED CELL DISTRIBUTION WIDTH 16.8 % (12.4-16.4); WHITE BLOOD COUNT 5.6 tho/cmm (4.0-10.0)
[2016-09-05 04:47] LABS: ANION GAP 13 mmol/L (0-20); BLOOD UREA NITROGEN 26 mg/dl (6-24); CALCIUM 8.3 mg/dl (8.5-10.5); CARBON DIOXIDE-VENOUS 27 mmol/L (22-32); CHLORIDE 106 mmol/l (96-110); CREATININE 1.16 mg/dl (0.50-1.10); GLUCOSE 116 mg/dL (70-110); POTASSIUM 3.9 mmol/L (3.7-5.1); SODIUM 142 mmol/L (135-145); eGFR VALUE FOR BLACK 51 mL/Min
[2016-09-05 08:32] LABS: BAND % 9 % (0-20); BAND ABSOLUTE COUNT 0.5 tho/cmm (0-2.0); BASOPHIL % 1 % (0-2); BASOPHIL ABSOLUTE COUNT 0.1 tho/cmm (0.0-0.2); EOSINOPHIL % 8 % (0-7)
[2016-09-05 08:33] LABS: WBC MORPHOLOGY VARIANT LYMPHS
== END 2016-09-05 17:17 | disposition home health service (06) | DRG 292 ==
LOC: EDMED 09:04 → EMR2 11:41 → PCUA 16:07
PROVIDERS: Emergency Medicine; ADMIT Family Medicine
PROC: 30233N1 Transfusion of Nonautologous Red Blood Cells into Peripheral Vein, Percutaneous Approach (ICD-10-PCS; principal; 2016-09-02)
DX: I50.33 Acute on chronic diastolic (congestive) heart failure (principal); N17.9 Acute kidney failure, unspecified; D51.0 Vitamin B12 deficiency anemia due to intrinsic factor deficiency; I48.0 Paroxysmal atrial fibrillation; J44.9 Chronic obstructive pulmonary disease, unspecified; F32.9 Major depressive disorder, single episode, unspecified; M81.0 Age-related osteoporosis without current pathological fracture; I34.0 Nonrheumatic mitral (valve) insufficiency; Z88.2 Allergy status to sulfonamides; Z87.891 Personal history of nicotine dependence; Z66 Do not resuscitate; Z87.19 Personal history of other diseases of the digestive system; I71.4 Abdominal aortic aneurysm, without rupture
CPT/HCPCS: J1940; P9016

== ENCOUNTER 2016-09-14 07:41 | Observation (INO) | payer MEDICARE, BC ==
[2016-09-14] MEDS ORDERED: POTASSIUM CHLO20 ME3 PO (08:00)
[2016-09-14 08:58] LABS: HCT-HEMATOCRIT 29.3 % (34.0-49.0); HGB-HEMOGLOBIN 8.9 gm/dl (12.0-15.5); MCHC MEAN CORPUSCULAR HGB CONC 30.4 % (32.0-36.0); MCV (MEAN CELL VOLUME) 85.7 fl (82.0-96.0); MEAN PLATELET VOLUME 11.5 cmc (9.4-12.4); NEUTROPHIL-AUTOMATED 4.8 tho/cmm (1.6-8.0); PLATELET COUNT 256 tho/cmm (150-450); RED BLOOD COUNT 3.42 mil/cmm (4.00-5.20); RED CELL DISTRIBUTION WIDTH 16.7 % (12.4-16.4); WHITE BLOOD COUNT 8.3 tho/cmm (4.0-10.0)
[2016-09-14 09:15] LABS: ANION GAP 12 mmol/L (0-20); BLOOD UREA NITROGEN 33 mg/dl (6-24); CALCIUM 8.4 mg/dl (8.5-10.5); CARBON DIOXIDE-VENOUS 23 mmol/L (22-32); CHLORIDE 110 mmol/l (96-110); CREATININE 1.42 mg/dl (0.50-1.10); GLUCOSE 131 mg/dL (70-110); POTASSIUM 4.2 mmol/L (3.7-5.1); SODIUM 141 mmol/L (135-145); eGFR VALUE FOR BLACK 40 mL/Min
[2016-09-14 09:46] LABS: BAND % 7 % (0-20); BAND ABSOLUTE COUNT 0.6 tho/cmm (0-2.0); EOSINOPHIL % 2 % (0-7)
[2016-09-15 06:10] LABS: ANION GAP 16 mmol/L (0-20); BLOOD UREA NITROGEN 30 mg/dl (6-24); CALCIUM 8.4 mg/dl (8.5-10.5); CARBON DIOXIDE-VENOUS 20 mmol/L (22-32); CHLORIDE 109 mmol/l (96-110); CREATININE 1.15 mg/dl (0.50-1.10); GLUCOSE 159 mg/dL (70-110); POTASSIUM 4.7 mmol/L (3.7-5.1); SODIUM 140 mmol/L (135-145); eGFR VALUE FOR BLACK 52 mL/Min
[2016-09-16 05:54] LABS: HCT-HEMATOCRIT 28.4 % (34.0-49.0); HGB-HEMOGLOBIN 8.2 gm/dl (12.0-15.5); MCH (MEAN CORPUSCULAR HGB) 25.2 pg (28.0-32.0); MCV (MEAN CELL VOLUME) 87.4 fl (82.0-96.0); MEAN PLATELET VOLUME 11.7 cmc (9.4-12.4); PLATELET COUNT 304 tho/cmm (150-450); RED BLOOD COUNT 3.25 mil/cmm (4.00-5.20); RED CELL DISTRIBUTION WIDTH 16.8 % (12.4-16.4)
[2016-09-16 06:09] LABS: ANION GAP 15 mmol/L (0-20); BLOOD UREA NITROGEN 37 mg/dl (6-24); CALCIUM 8.5 mg/dl (8.5-10.5); CARBON DIOXIDE-VENOUS 23 mmol/L (22-32); CHLORIDE 109 mmol/l (96-110); CREATININE 1.28 mg/dl (0.50-1.10); GLUCOSE 175 mg/dL (70-110); POTASSIUM 4.8 mmol/L (3.7-5.1); SODIUM 142 mmol/L (135-145); eGFR VALUE FOR BLACK 45 mL/Min
[2016-09-16 08:01] LABS: BAND % 16 % (0-20); BAND ABSOLUTE COUNT 1.9 tho/cmm (0-2.0)
[2016-09-16] MEDS ORDERED: ZITHROMAX250 M1 PO (11:01)
[2016-09-16] MEDS ORDERED: DELTASONE20 MG PO (11:03)
== END 2016-09-16 11:45 ==
LOC: EDMED 07:41 → EMR2 09:52 → CAR1 13:30
PROVIDERS: Emergency Medicine; Family Medicine; ADMIT Internal Medicine
DX: J44.1 Chronic obstructive pulmonary disease with (acute) exacerbation (principal); J96.11 Chronic respiratory failure with hypoxia; I50.32 Chronic diastolic (congestive) heart failure; N18.3 Chronic kidney disease, stage 3 (moderate); I48.91 Unspecified atrial fibrillation; Z88.2 Allergy status to sulfonamides; Z79.899 Other long term (current) drug therapy; Z98.890 Other specified postprocedural states; Z90.49 Acquired absence of other specified parts of digestive tract; Z98.51 Tubal ligation status
CPT/HCPCS: G0378; G8978-GO-CJ; G8978-GP-CI; G8979-GO-CI; G8979-GP-CI; G8980-GO-CJ; G8980-GP-CI; G8987-GO-CJ; G8988-GO-CI; G8989-GO-CJ; J0456; J0696; J2920; J2930; J7030; J7050